=== PATIENT | male | born 1955 | race African-American/Black ===

== ENCOUNTER 2021-05-03 06:45 | Inpatient (IN) | payer OTHER, MEDICARE ==
[2021-05-03] VITALS (44 sets, daily range): BP systolic 77–250; BP diastolic 34–132
[~2021-05-03] VITALS: Ht 190.5 cm; Wt 109.3 kg
[2021-05-03] MEDS ORDERED: ASPIRIN 81MG TABLET PO ONE (07:30)
[2021-05-03] MEDS ORDERED: NITROGLYCERIN 0.4MG TABLET SL SL PRN (07:30)
[2021-05-03] MEDS ORDERED: NITROGLYCERIN 50MCG/ML 10ML VIAL (CATH LAB) IV ONE (07:50)
[2021-05-03] MEDS ORDERED: HEPARIN SODIUM 1,000 UNIT/1ML VIAL IV ONE (07:50)
[2021-05-03] MEDS ORDERED: NICARDIPINE 100MCG/ML 10ML VIAL (CATH LAB) IV ONE (07:50)
[2021-05-03 08:05] LABS: CHLORIDE 107 mEq/L (98-107)
[2021-05-03 08:08] LABS: BASOPHILS % 0.7 % (0.0-2.0); EOSINOPHILS % 1.9 % (0.0-5.0); HEMATOCRIT. 40.6 % (42.0-52.0); HEMOGLOBIN. 13.9 g/dL (14.0-18.0); LYMPHOCYTES % 22.3 % (20.0-50.0); MEAN CORPUSCULAR HEMOGLOBIN 30.4 pg (28.0-32.0); MEAN CORPUSCULAR VOLUME 88.5 fL (80.0-94.0); MEAN PLATELET VOLUME 8.9 fl (7.4-10.4); MONOCYTES % 6.9 % (2.0-8.0); NEUTROPHILS % 68.2 % (40.0-76.0); PLATELET 220 x1000/uL (130-400); RED BLOOD CELL COUNT 4.58 mill/uL (4.7-6.1); RED CELL DISTRIBUTION WIDTH 13.7 % (11.6-14.6)
[2021-05-03] MEDS ORDERED: ENOXAPARIN 150MG/ML SYR SUBCUT ONE (09:15)
[2021-05-03] MEDS ORDERED: VECURONIUM BROMIDE 10 MG/VIAL IV ONE (09:23)
[2021-05-03] MEDS ORDERED: SUCCINYLCHOLINE CHLORIDE 200MG/10ML IV ONE (09:23)
[2021-05-03] MEDS ORDERED: ETOMIDATE 2MG/ML 10ML VIAL IV ONE (09:23)
[2021-05-03] MEDS ORDERED: LOPHC2 GT (09:55)
[2021-05-03] MEDS ORDERED: AMLO2.5T2 MT (09:55)
[2021-05-03] MEDS ORDERED: LOPHC2 MT (09:55)
[2021-05-03] MEDS ORDERED: ATOR10TA69 MT (09:55)
[2021-05-03] MEDS ORDERED: ASPIRIN 81MG TABLET PO NR (10:54)
[2021-05-03] MEDS ORDERED: LIDOCAINE HCL 1% 20ML VIAL (Pyxis) INJ ONE (12:13)
[2021-05-03] MEDS ORDERED: IODIXANOL 320MG/ML 100 ML BOTTLE IV ONE ×3 (12:20→13:51)
[2021-05-03] MEDS ORDERED: IOHEXOL-300 100 ML BOTTLE ONE ×2 (12:20→13:50)
[2021-05-03] MEDS ORDERED: MIDAZOLAM HCL 2 MG/2 ML VIAL ONE ×3 (12:21→13:02)
[2021-05-03] MEDS ORDERED: VERAPAMIL HCL 2.5 MG/1 ML 2ML VIAL IV ONE (12:22)
[2021-05-03] MEDS ORDERED: FENTANYL CITRATE/PF 50MCG/ML 2ML VIAL ONE ×2 (12:22→12:47)
[2021-05-03] MEDS ORDERED: DIPHENHYDRAMINE 50MG/ML VIAL ONE (13:07)
[2021-05-03] MEDS ORDERED: PROPOFOL 10MG/ML 100ML 100 ML IV ONE (13:26)
[2021-05-03] MEDS ORDERED: ROCURONIUM BROMIDE 10MG/ML VIAL 5ML IV ONE ×2 (14:05→14:50)
[2021-05-03] MEDS ORDERED: FENTANYL CITRATE/PF 2,500 MCG in SODIUM CHLORIDE 0.9% 200 ML IV PRN ×2 (15:30→22:15)
[2021-05-03] MEDS ORDERED: ACETAMINOPHEN 325MG TABLET PO PRN (15:30)
[2021-05-03] MEDS ORDERED: HYDRALAZINE 20MG/ML VIAL IV NR (15:30)
[2021-05-03] MEDS ORDERED: HYDRALAZINE 20MG/ML VIAL IV PRN (15:30)
[2021-05-03] MEDS ORDERED: ATROPINE SULFATE 1MG/10ML SYR IV PRN (15:30)
[2021-05-03] MEDS ORDERED: METOPROLOL TARTRATE 5MG/5ML VIAL IV NR (15:30)
[2021-05-03] MEDS: PROPOFOL 10MG/ML 100ML 100 ML IV SCH ×3 (15:34→22:31)
[2021-05-03] MEDS ORDERED: METOPROLOL TARTRATE 5MG/5ML VIAL IV ONE (15:38)
[2021-05-03] MEDS ORDERED: NITROGLYCERIN 50MG PREMIX 250 ML IV PRN (15:45)
[2021-05-03 16:03] LABS: BG BASE EXCESS -6.6 mmol/L (-2.0-2.0); BG CARBOXYHEMOGLOBIN 0.3 % (0.5-1.5); BG DEOXYHEMOGLOBIN 4.2 % (0.0-5.0); BG FRACTION INSPIRED OXYGEN 70; BG HCO3 ACT 19.6 mmol/L (22.0-26.0); BG METHEMOGLOBIN 0.3 % (0.0-1.5); BG OXYGEN SATURATION 95.8 % (92.0-98.5); BG OXYHEMOGLOBIN 95.2 % (94.0-97.0); BG PCO2 41.4 mmHg (35.0-45.0); BG PH 7.293 (7.350-7.450); BG PO2 87.4 mmHg (75.0-100.0); BG SAMPLE SITE ALINE; BG TOTAL HEMOGLOBIN 15.3 g/dL (12.0-18.0); BG VENT MODE VENT - AC
[2021-05-03] MEDS ORDERED: METOPROLOL TARTRATE 25MG TABLET PO NR (16:30)
[2021-05-03] MEDS: PANTOPRAZOLE SODIUM 40 MG/VIAL IV SCH (16:57)
[2021-05-03 19:29] LABS: INR 1.1; PROTHROMBIN TIME 11.9 sec (9.6-11.0)
[2021-05-03] MEDS ORDERED: HEPARIN 25,000 UNITS PREMIX 250 ML IV SCH (19:30)
[2021-05-03] MEDS ORDERED: HEPARIN BOLUS PRN aPTT <30 IV (19:45)
[2021-05-03] MEDS ORDERED: HEPARIN BOLUS PRN aPTT 30-44 IV (19:45)
[2021-05-03] MEDS: IPRATROPIUM/ALBUTEROL 0.5-3(2.5)MG/3ML NEB HHN SCH (20:12)
[2021-05-03] MEDS: HEPARIN 25,000 UNITS PREMIX 250 ML IV SCH (20:24)
[2021-05-03] MEDS: ALLOPURINOL 300 MG TABLET PO SCH (20:31)
[2021-05-03] MEDS: CHLORHEXIDINE GLUCONATE 4% EXTERNAL USE TOP SCH (20:32)
[2021-05-03] MEDS: METOPROLOL TARTRATE 50MG TABLET PO SCH (20:34)
[2021-05-03] MEDS ORDERED: BISACODYL 10MG SUPP PR PRN (21:00)
[2021-05-03] MEDS ORDERED: ASCORBIC ACID 500 MG TABLET PO NR (21:00)
[2021-05-03] MEDS ORDERED: CHLORHEXIDINE GLUCONATE 4% EXTERNAL USE TOP NR (21:00)
[2021-05-03] MEDS ORDERED: DOCUSATE SODIUM 100MG CAPSULE PO NR (21:00)
[2021-05-03] MEDS: HYDRALAZINE HCL 50MG TABLET PO SCH (22:23)
[2021-05-04] VITALS (74 sets, daily range): BP systolic 88–153; BP diastolic 31–82
[2021-05-04] MEDS: IPRATROPIUM/ALBUTEROL 0.5-3(2.5)MG/3ML NEB HHN SCH ×4 (01:45→20:31)
[2021-05-04] MEDS: PROPOFOL 10MG/ML 100ML 100 ML IV PRN ×4 (02:10→12:17)
[2021-05-04 04:47] LABS: BASOPHILS % 0.2 % (0.0-2.0); EOSINOPHILS % 0.4 % (0.0-5.0); HEMATOCRIT. 38.8 % (42.0-52.0); HEMOGLOBIN. 13.1 g/dL (14.0-18.0); LYMPHOCYTES % 13.3 % (20.0-50.0); MEAN CORPUSCULAR HEMOGLOBIN 29.9 pg (28.0-32.0); MEAN CORPUSCULAR VOLUME 88.5 fL (80.0-94.0); MEAN PLATELET VOLUME 8.8 fl (7.4-10.4); MONOCYTES % 7.4 % (2.0-8.0); NEUTROPHILS % 78.7 % (40.0-76.0); PLATELET 212 x1000/uL (130-400); RED BLOOD CELL COUNT 4.39 mill/uL (4.7-6.1); RED CELL DISTRIBUTION WIDTH 13.6 % (11.6-14.6)
[2021-05-04 04:52] LABS: CHLORIDE 105 mEq/L (98-107)
[2021-05-04] MEDS: ALLOPURINOL 300 MG TABLET PO SCH (05:27)
[2021-05-04] MEDS: HYDRALAZINE HCL 50MG TABLET PO SCH ×3 (05:27→21:14)
[2021-05-04] MEDS: HEPARIN 25,000 UNITS PREMIX 250 ML IV SCH (06:00)
[2021-05-04] MEDS ORDERED: HEPARIN 25,000 UNITS PREMIX 250 ML IV PRN (06:15)
[2021-05-04] MEDS ORDERED: POTASSIUM CHLORIDE INJ 40 MEQ in DEXT 5% WATER 250 ML IV SCH (07:00)
[2021-05-04] MEDS ORDERED: MAGNESIUM SULFATE 5GM/10ML VIAL IV ONE (07:40)
[2021-05-04] MEDS ORDERED: HEPARIN 1000 UNITS/ML 10ML ONE ×2 (07:40→13:41)
[2021-05-04] MEDS ORDERED: HEPARIN 10,000 UNITS/ML VIAL ONE ×2 (07:40→17:03)
[2021-05-04] MEDS ORDERED: ALBUMIN HUMAN 25GM/100ML (25%) IV ONE (07:40)
[2021-05-04] MEDS: PANTOPRAZOLE SODIUM 40 MG/VIAL IV SCH (08:58)
[2021-05-04] MEDS: ASPIRIN 81MG TABLET PO SCH (09:00)
[2021-05-04] MEDS: METOPROLOL TARTRATE 50MG TABLET PO SCH ×2 (09:00→20:44)
[2021-05-04] MEDS ORDERED: KCL 10MEQ/50ML PREMIX 200 ML IV PRN (10:00)
[2021-05-04] MEDS ORDERED: KCL 10MEQ/50ML PREMIX 150 ML IV PRN (10:00)
[2021-05-04] MEDS ORDERED: THROMBIN (BOVINE) 5000 UNITS/VIAL TOP ONE (10:02)
[2021-05-04] MEDS ORDERED: SKIN ADHESIVE 0.7 GM EA TOP ONE (10:02)
[2021-05-04] MEDS: CHLORHEXIDINE GLUCONATE 4% EXTERNAL USE TOP SCH (10:38)
[2021-05-04] MEDS ORDERED: POLYMYXIN B SULFATE 500000 UNITS/VIAL ONE (11:14)
[2021-05-04] MEDS ORDERED: DOPAMINE 400MG/250ML PREMIX 250 ML IV ONE (11:18)
[2021-05-04 11:40] LABS: BG CARBOXYHEMOGLOBIN 0.3 % (0.5-1.5); BG DEOXYHEMOGLOBIN 0.8 % (0.0-5.0); BG FRACTION INSPIRED OXYGEN 70; BG HCO3 ACT 22.5 mmol/L (22.0-26.0); BG METHEMOGLOBIN 0.1 % (0.0-1.5); BG OXYGEN SATURATION 99.2 % (92.0-98.5); BG OXYHEMOGLOBIN 98.8 % (94.0-97.0); BG PCO2 37.7 mmHg (35.0-45.0); BG PH 7.393 (7.350-7.450); BG PO2 265.7 mmHg (75.0-100.0); BG SAMPLE SITE ALINE; BG TOTAL HEMOGLOBIN 13.6 g/dL (12.0-18.0); BG TOTAL RESPIRATORY RATE 18 b/min; BG VENT MODE VENT - AC
[2021-05-04] MEDS ORDERED: CEFAZOLIN 2,000 MG in DEXT 5% WATER 100 ML IV SCH (12:00)
[2021-05-04] MEDS ORDERED: INSULIN REGULAR (DRIP) 100 UNITS in SODIUM CHLORIDE 0.9% 99 ML IV SCH (12:00)
[2021-05-04] MEDS ORDERED: EPINEPHRINE 5 MG in DEXT 5% WATER 245 ML IV PRN (12:00)
[2021-05-04] MEDS ORDERED: PAPAVERINE HCL 180MG in SODIUM CHLORIDE 0.9% 24ML IV SCH (12:00)
[2021-05-04] MEDS ORDERED: AMINOCAPROIC ACID 5,000 MG in SODIUM CHLORIDE 0.9% 230 ML IV SCH (12:00)
[2021-05-04] MEDS ORDERED: NOREPINEPHRINE 8 MG in DEXT 5% WATER 242 ML IV PRN (12:00)
[2021-05-04] MEDS ORDERED: DEL NIDO ELECTROLYTE-S(PH 7.4) 1,000 ML IV SCH ×2 (12:00)
[2021-05-04] MEDS ORDERED: FUROSEMIDE 40MG/4ML VIAL IVP NR (12:30)
[2021-05-04] MEDS ORDERED: ROCURONIUM BROMIDE 10MG/ML VIAL 5ML IV ONE (13:45)
[2021-05-04] MEDS ORDERED: FENTANYL CITRATE/PF 50MCG/ML 5ML VIAL ONE (13:49)
[2021-05-04] MEDS ORDERED: PROPOFOL 10MG/ML 100ML 100 ML IV ONE ×2 (14:44→18:17)
[2021-05-04] MEDS ORDERED: CEFAZOLIN SODIUM 1000MG/VIAL ONE ×2 (15:12→16:17)
[2021-05-04] MEDS ORDERED: HYDRALAZINE 20MG/ML VIAL ONE (15:19)
[2021-05-04] MEDS ORDERED: PROPOFOL 200MG/20ML VIAL IV ONE (16:16)
[2021-05-04] MEDS ORDERED: ONDANSETRON HCL 4MG/2ML INJ ONE (16:17)
[2021-05-04] MEDS ORDERED: METOCLOPRAMIDE HCL 10MG/2ML VIAL ONE (16:17)
[2021-05-04] MEDS ORDERED: PROPOFOL 10MG/ML 100ML 100 ML IV PRN (16:30)
[2021-05-04] MEDS ORDERED: CALCIUM CHLORIDE 1GM/10ML SYR IV ONE (16:31)
[2021-05-04] MEDS ORDERED: MIDAZOLAM HCL 2 MG/2 ML VIAL ONE (16:54)
[2021-05-04] MEDS ORDERED: PROTAMINE SULFATE 10MG/ML VIAL 25ML IV ONE (17:15)
[2021-05-04] MEDS ORDERED: ALBUMIN HUMAN 12.5G/250ML (5%) IV ONE ×2 (17:19→17:50)
[2021-05-04] MEDS ORDERED: NEOSTIGMINE METHYLSULFATE 1MG/ML 10 ML VIAL ONE (17:33)
[2021-05-04] MEDS ORDERED: SODIUM BICARBONATE 8.4% 1 MEQ/ML 50ML SYR IV ONE ×2 (17:39→18:54)
[2021-05-04] MEDS ORDERED: SODIUM CHLORIDE 0.9% 10ML VIAL ONE (17:51)
[2021-05-04] MEDS ORDERED: PHENYLEPHRINE HCL 10 MG/ML 1ML (IV VIAL) IV ONE (17:52)
[2021-05-04] MEDS ORDERED: KCL 20MEQ/100ML PREMIX 100 ML IV NR (18:00)
[2021-05-04] MEDS ORDERED: ALBUMIN HUMAN 25GM/100ML (25%) IV PRN (18:15)
[2021-05-04] MEDS ORDERED: MAGNESIUM SULFATE 3 GM in DEXT 5% WATER 100 ML IV PRN (18:15)
[2021-05-04] MEDS ORDERED: ONDANSETRON HCL 4MG/2ML INJ IV PRN (18:15)
[2021-05-04] MEDS ORDERED: MAGNESIUM 2 G PREMIX 50 ML IV PRN (18:15)
[2021-05-04] MEDS ORDERED: ALBUMIN HUMAN 12.5G/250ML (5%) IV PRN (18:15)
[2021-05-04] MEDS ORDERED: MAGNESIUM 1 G PREMIX 100 ML IV PRN (18:15)
[2021-05-04] MEDS ORDERED: EPINEPHRINE 5 MG in DEXT 5% WATER 245 ML IV SCH (18:15)
[2021-05-04] MEDS ORDERED: SODIUM CHLORIDE 0.9% 500 ML IV PRN (18:15)
[2021-05-04] MEDS ORDERED: KETOROLAC 30MG/ML VIAL IV PRN (18:15)
[2021-05-04] MEDS ORDERED: DEXMEDETOMIDINE 400 MCG/100 ML 100 ML IV ONE (18:17)
[2021-05-04 18:40] LABS: BG BASE EXCESS -6.1 mmol/L (-2.0-2.0); BG CARBOXYHEMOGLOBIN 0.3 % (0.5-1.5); BG DEOXYHEMOGLOBIN 4.6 % (0.0-5.0); BG FRACTION INSPIRED OXYGEN 100; BG HCO3 ACT 18.2 mmol/L (22.0-26.0); BG METHEMOGLOBIN 0.4 % (0.0-1.5); BG OXYGEN SATURATION 95.4 % (92.0-98.5); BG OXYHEMOGLOBIN 94.7 % (94.0-97.0); BG PCO2 31.8 mmHg (35.0-45.0); BG PH 7.375 (7.350-7.450); BG PO2 79.8 mmHg (75.0-100.0); BG SAMPLE SITE ALINE; BG VENT MODE MASK - NRB
[2021-05-04 18:56] LABS: CHLORIDE 108 mEq/L (98-107); HEMATOCRIT. 29.8 % (42.0-52.0); HEMOGLOBIN. 10.3 g/dL (14.0-18.0); MEAN CORPUSCULAR HEMOGLOBIN 30.7 pg (28.0-32.0); MEAN CORPUSCULAR VOLUME 88.5 fL (80.0-94.0); MEAN PLATELET VOLUME 8.9 fl (7.4-10.4); PLATELET 168 x1000/uL (130-400); RED BLOOD CELL COUNT 3.36 mill/uL (4.7-6.1); RED CELL DISTRIBUTION WIDTH 13.4 % (11.6-14.6)
[2021-05-04] MEDS ORDERED: SODIUM BICARBONATE 8.4% 1 MEQ/ML 50ML SYR IV NR (19:00)
[2021-05-04] MEDS: DOPAMINE 400MG/250ML PREMIX 250 ML IV SCH (19:10)
[2021-05-04] MEDS ORDERED: DEXT 5%/0.45% NACL 1000ML 1,000 ML IV SCH (19:30)
[2021-05-04] MEDS ORDERED: FUROSEMIDE 100MG/10ML VIAL IVP NR (20:00)
[2021-05-04 20:01] LABS: PLATELET ESTIMATE NORMAL
[2021-05-04] MEDS ORDERED: POTASSIUM CHLORIDE INJ 40 MEQ in DEXT 5% WATER 250 ML IV ONE (20:30)
[2021-05-04] MEDS: CLOPIDOGREL 75MG TABLET PO SCH (22:25)
[2021-05-04] MEDS: MAGNESIUM HYDROXIDE 400MG/5ML 30ML UDC PO SCH (22:28)
[2021-05-04] MEDS: CEFAZOLIN 1000MG PREMIX 50 ML IV SCH (22:36)
[2021-05-04] MEDS: OXYCODONE HCL/ACETAMINOPHEN 5/325MG TABLET PO PRN ×2 (22:44→23:19)
[2021-05-04] MEDS ORDERED: CEFAZOLIN 1000MG PREMIX 50 ML IV SCH (23:30)
[2021-05-05] VITALS (97 sets, daily range): BP systolic 92–178; BP diastolic 36–92
[2021-05-05 00:15] LABS: HEMATOCRIT. 27.4 % (42.0-52.0); HEMOGLOBIN. 9.5 g/dL (14.0-18.0); MEAN CORPUSCULAR HEMOGLOBIN 30.3 pg (28.0-32.0); MEAN CORPUSCULAR VOLUME 87.7 fL (80.0-94.0); MEAN PLATELET VOLUME 8.5 fl (7.4-10.4); PLATELET 151 x1000/uL (130-400); RED BLOOD CELL COUNT 3.13 mill/uL (4.7-6.1); RED CELL DISTRIBUTION WIDTH 13.7 % (11.6-14.6)
[2021-05-05] MEDS: OXYCODONE HCL/ACETAMINOPHEN 5/325MG TABLET PO PRN ×2 (02:05→10:34)
[2021-05-05] MEDS: IPRATROPIUM/ALBUTEROL 0.5-3(2.5)MG/3ML NEB HHN SCH ×5 (02:18→20:35)
[2021-05-05] MEDS ORDERED: FUROSEMIDE 20MG/2ML VIAL IV SCH (02:45)
[2021-05-05] MEDS: KCL 10MEQ/50ML PREMIX 100 ML IV PRN ×2 (03:02→03:39)
[2021-05-05] MEDS: MAGNESIUM HYDROXIDE 400MG/5ML 30ML UDC PO SCH ×5 (03:04→17:40)
[2021-05-05] MEDS: ALBUMIN HUMAN 25GM/100ML (25%) IV SCH ×5 (03:19→15:32)
[2021-05-05] MEDS: DOPAMINE 400MG/250ML PREMIX 250 ML IV SCH (03:40)
[2021-05-05] MEDS: FUROSEMIDE IV PRN ×2 (03:51→04:10)
[2021-05-05] MEDS: WATER IV PRN ×2 (03:51→04:10)
[2021-05-05] MEDS: DEXT 5% IV PRN ×2 (03:51→04:10)
[2021-05-05 06:02] LABS: HEMOGLOBIN. 8.9 g/dL (14.0-18.0); MEAN CORPUSCULAR HEMOGLOBIN 29.9 pg (28.0-32.0); MEAN PLATELET VOLUME 9.1 fl (7.4-10.4); PLATELET 149 x1000/uL (130-400); RED BLOOD CELL COUNT 2.99 mill/uL (4.7-6.1); RED CELL DISTRIBUTION WIDTH 13.7 % (11.6-14.6)
[2021-05-05] MEDS ORDERED: INSULIN REGULAR (DRIP) 100 UNITS in SODIUM CHLORIDE 0.9% 99 ML IV ONE ×2 (07:00→07:05)
[2021-05-05] MEDS ORDERED: DEXTROSE 50% WATER 50ML SYRINGE IV PRN ×2 (07:15)
[2021-05-05] MEDS ORDERED: INSULIN REGULAR (DRIP) 100 UNITS in SODIUM CHLORIDE 0.9% 100 ML IV SCH (07:30)
[2021-05-05] MEDS: CEFAZOLIN 1000MG PREMIX 50 ML IV SCH ×2 (08:42→15:32)
[2021-05-05] MEDS: CLOPIDOGREL 75MG TABLET PO SCH (08:51)
[2021-05-05] MEDS: BLOOD SUGAR DIAGNOSTIC STRIP TEST SCH ×7 (08:51→14:41)
[2021-05-05] MEDS: PANTOPRAZOLE SODIUM 40 MG/VIAL IV SCH (08:52)
[2021-05-05] MEDS: ASPIRIN 81MG TABLET PO SCH (08:52)
[2021-05-05] MEDS: DOCUSATE SODIUM 100MG CAPSULE PO SCH ×2 (08:52→16:45)
[2021-05-05] MEDS ORDERED: FAMOTIDINE 20MG/2ML VIAL IV SCH (09:00)
[2021-05-05] MEDS: BACITRACIN 15GM TUBE TOP SCH ×2 (09:00→16:45)
[2021-05-05 10:28] LABS: PLATELET ESTIMATE NORMAL
[2021-05-05] MEDS ORDERED: MAGNESIUM SULFATE 3 GM in DEXT 5% WATER 96 ML IV NR (12:30)
[2021-05-05 13:43] LABS: PLATELET ESTIMATE NORMAL
[2021-05-05] MEDS: ACETYLCYSTEINE 100MG/ML 10% VIAL 4ML INH SCH ×2 (14:34→20:35)
[2021-05-05] MEDS ORDERED: FUROSEMIDE 40MG/4ML VIAL IVP NR (18:15)
[2021-05-05] MEDS ORDERED: ALBUMIN HUMAN 25GM/100ML (25%) IV NR (18:15)
[2021-05-05] MEDS ORDERED: MAGNESIUM 2 G PREMIX 50 ML IV SCH (20:00)
[2021-05-05] MEDS ORDERED: MAGNESIUM 2 G PREMIX 50 ML IV PRN (20:00)
[2021-05-05] MEDS: FAMOTIDINE 20MG TABLET PO SCH (20:50)
[2021-05-06] VITALS (43 sets, daily range): BP systolic 10–160; BP diastolic 0–82
[2021-05-06] MEDS: OXYCODONE HCL/ACETAMINOPHEN 5/325MG TABLET PO PRN ×2 (00:24→18:44)
[2021-05-06] MEDS: IPRATROPIUM/ALBUTEROL 0.5-3(2.5)MG/3ML NEB HHN SCH ×7 (01:37→20:40)
[2021-05-06 06:37] LABS: BASOPHILS % 0.1 % (0.0-2.0); EOSINOPHILS % 0.1 % (0.0-5.0); HEMATOCRIT. 22.2 % (42.0-52.0); HEMOGLOBIN. 7.8 g/dL (14.0-18.0); LYMPHOCYTES % 11.3 % (20.0-50.0); MEAN CORPUSCULAR VOLUME 88.1 fL (80.0-94.0); MEAN PLATELET VOLUME 9.4 fl (7.4-10.4); MONOCYTES % 8.1 % (2.0-8.0); NEUTROPHILS % 80.4 % (40.0-76.0); PLATELET 108 x1000/uL (130-400); RED BLOOD CELL COUNT 2.52 mill/uL (4.7-6.1); RED CELL DISTRIBUTION WIDTH 13.8 % (11.6-14.6)
[2021-05-06] MEDS: ACETYLCYSTEINE 100MG/ML 10% VIAL 4ML INH SCH ×2 (08:52→19:52)
[2021-05-06] MEDS: ASPIRIN 81MG TABLET PO SCH (08:56)
[2021-05-06] MEDS: FAMOTIDINE 20MG TABLET PO SCH ×2 (08:56→20:13)
[2021-05-06] MEDS: CLOPIDOGREL 75MG TABLET PO SCH (08:56)
[2021-05-06] MEDS: BACITRACIN 15GM TUBE TOP SCH ×2 (08:57→18:44)
[2021-05-06] MEDS: DOCUSATE SODIUM 100MG CAPSULE PO SCH ×2 (08:57→18:44)
[2021-05-06] MEDS ORDERED: MORPHINE SULFATE 2 MG/ML CPJ (NOT FOR IM USE) IV NR (10:45)
[2021-05-06] MEDS ORDERED: FUROSEMIDE 40MG/4ML VIAL IVP NR (11:00)
[2021-05-06] MEDS: KCL 10MEQ/50ML PREMIX 100 ML IV PRN (11:43)
[2021-05-06] MEDS: MINERAL OIL 30ML BOTTLE PO SCH ×2 (13:24→18:44)
[2021-05-06] MEDS: FINASTERIDE 5MG TABLET PO SCH ×2 (14:27→18:44)
[2021-05-07] VITALS (12 sets, daily range): BP systolic 103–173; BP diastolic 56–91
[2021-05-07] MEDS: IPRATROPIUM/ALBUTEROL 0.5-3(2.5)MG/3ML NEB HHN SCH ×6 (00:16→21:02)
[2021-05-07] MEDS: OXYCODONE HCL/ACETAMINOPHEN 5/325MG TABLET PO PRN ×2 (04:25→16:15)
[2021-05-07 07:06] LABS: HEMATOCRIT. 29.4 % (42.0-52.0); HEMOGLOBIN. 10.1 g/dL (14.0-18.0); MEAN CORPUSCULAR VOLUME 87.5 fL (80.0-94.0); MEAN PLATELET VOLUME 9.2 fl (7.4-10.4); PLATELET 142 x1000/uL (130-400); RED BLOOD CELL COUNT 3.36 mill/uL (4.7-6.1); RED CELL DISTRIBUTION WIDTH 14.2 % (11.6-14.6)
[2021-05-07] MEDS: ACETYLCYSTEINE 100MG/ML 10% VIAL 4ML INH SCH ×2 (07:32→18:00)
[2021-05-07] MEDS: BACITRACIN 15GM TUBE TOP SCH ×2 (08:15→16:15)
[2021-05-07] MEDS: ASPIRIN 81MG TABLET PO SCH (08:15)
[2021-05-07] MEDS: FINASTERIDE 5MG TABLET PO SCH ×2 (08:15→16:14)
[2021-05-07] MEDS: FAMOTIDINE 20MG TABLET PO SCH ×2 (08:15→20:43)
[2021-05-07] MEDS: CLOPIDOGREL 75MG TABLET PO SCH (08:15)
[2021-05-07] MEDS: DOCUSATE SODIUM 100MG CAPSULE PO SCH ×2 (08:15→16:13)
[2021-05-07] MEDS: MINERAL OIL 30ML BOTTLE PO SCH ×2 (08:15→16:13)
[2021-05-07] MEDS ORDERED: BUMETANIDE 1MG/4ML VIAL IV NR (10:30)
[2021-05-07 11:41] LABS: PLATELET ESTIMATE NORMAL
[2021-05-07] MEDS ORDERED: FUROSEMIDE 20MG/2ML VIAL IVP NR (13:00)
[2021-05-07] MEDS: METOPROLOL TARTRATE 25MG TABLET PO SCH (20:43)
[2021-05-07] MEDS ORDERED: POTASSIUM CHLORIDE 10MEQ TABLET SR PO SCH (22:00)
[2021-05-08] VITALS (10 sets, daily range): BP systolic 106–145; BP diastolic 49–93
[2021-05-08] MEDS: IPRATROPIUM/ALBUTEROL 0.5-3(2.5)MG/3ML NEB HHN SCH ×4 (01:25→14:55)
[2021-05-08] MEDS: OXYCODONE HCL/ACETAMINOPHEN 5/325MG TABLET PO PRN (04:19)
[2021-05-08 07:20] LABS: HEMATOCRIT 28.6 % (42.0-52.0); HEMOGLOBIN 9.8 g/dL (14.0-18.0); MEAN CORPUSCULAR HEMOGLOBIN 30.3 pg (28.0-32.0); MEAN CORPUSCULAR VOLUME 88.3 fL (80.0-94.0); PLATELET 179 x1000/uL (130-400); RED BLOOD CELL COUNT 3.24 mill/uL (4.7-6.1); RED CELL DISTRIBUTION WIDTH 14.1 % (11.6-14.6)
[2021-05-08] MEDS: DOCUSATE SODIUM 100MG CAPSULE PO SCH (08:30)
[2021-05-08] MEDS: CLOPIDOGREL 75MG TABLET PO SCH (08:30)
[2021-05-08] MEDS: FINASTERIDE 5MG TABLET PO SCH (08:30)
[2021-05-08] MEDS: METOPROLOL TARTRATE 25MG TABLET PO SCH (08:30)
[2021-05-08] MEDS: ASPIRIN 81MG TABLET PO SCH (08:30)
[2021-05-08] MEDS: MINERAL OIL 30ML BOTTLE PO SCH (08:31)
[2021-05-08] MEDS: BACITRACIN 15GM TUBE TOP SCH (08:31)
[2021-05-08] MEDS: FAMOTIDINE 20MG TABLET PO SCH (08:31)
[2021-05-08] MEDS: ACETYLCYSTEINE 100MG/ML 10% VIAL 4ML INH SCH (08:48)
[2021-05-08] MEDS ORDERED: FUROSEMIDE 40MG/4ML VIAL IVP SCH (09:00)
[2021-05-08] MEDS ORDERED: POTASSIUM CHLORIDE 20MEQ TABLET SR PO NR (11:00)
[2021-05-09] MEDS ORDERED: FUROSEMIDE 40MG TABLET PO SCH (09:00)
== END 2021-05-08 17:16 | disposition home health service (06) | DRG 231 ==
LOC: ER 06:45 → CVICU 10:16 → EDBEDREQSVC 10:19 → EDBEDREQTM 10:19 → EDBEDREQ 10:19 → CVICU 05-04 01:58 → 3WST 05-05 23:58
PROVIDERS: ADMIT Hospitalist; ATTEND Hospitalist
PROC: 02703Z6 Dilation of Coronary Artery, One Artery, Bifurcation, Percutaneous Approach (ICD-10-PCS; 2021-05-03)
PROC: 4A023N7 Measurement of Cardiac Sampling and Pressure, Left Heart, Percutaneous Approach (ICD-10-PCS; 2021-05-03)
PROC: B2111ZZ Fluoroscopy of Multiple Coronary Arteries using Low Osmolar Contrast (ICD-10-PCS; 2021-05-03)
PROC: B41F1ZZ Fluoroscopy of Right Lower Extremity Arteries using Low Osmolar Contrast (ICD-10-PCS; 2021-05-03)
PROC: 5A1945Z Respiratory Ventilation, 24-96 Consecutive Hours (ICD-10-PCS; 2021-05-03)
PROC: 0BH17EZ Insertion of Endotracheal Airway into Trachea, Via Natural or Artificial Opening (ICD-10-PCS; 2021-05-03)
PROC: 02100Z9 Bypass Coronary Artery, One Artery from Left Internal Mammary, Open Approach (ICD-10-PCS; principal; 2021-05-04)
PROC: 021209W Bypass Coronary Artery, Three Arteries from Aorta with Autologous Venous Tissue, Open Approach (ICD-10-PCS; 2021-05-04)
PROC: 06BQ4ZZ Excision of Left Saphenous Vein, Percutaneous Endoscopic Approach (ICD-10-PCS; 2021-05-04)
PROC: 30233N1 Transfusion of Nonautologous Red Blood Cells into Peripheral Vein, Percutaneous Approach (ICD-10-PCS; 2021-05-06)
DX: I21.09 ST elevation (STEMI) myocardial infarction involving other coronary artery of anterior wall (principal); I50.41 Acute combined systolic (congestive) and diastolic (congestive) heart failure; J96.01 Acute respiratory failure with hypoxia; N17.9 Acute kidney failure, unspecified; I25.10 Atherosclerotic heart disease of native coronary artery without angina pectoris; I16.0 Hypertensive urgency; I11.0 Hypertensive heart disease with heart failure; D64.9 Anemia, unspecified; E87.6 Hypokalemia; F17.200 Nicotine dependence, unspecified, uncomplicated; F12.90 Cannabis use, unspecified, uncomplicated; G89.29 Other chronic pain; I25.2 Old myocardial infarction; Z82.49 Family history of ischemic heart disease and other diseases of the circulatory system; K21.9 Gastro-esophageal reflux disease without esophagitis; R74.01 Elevation of levels of liver transaminase levels; Z20.822 Contact with and (suspected) exposure to COVID-19
CPT/HCPCS: 36415; 36600; 71045; 80048; 80053; 80061; 82375; 82805; 82962; 83036; 83735; 83880; 84132; 84478; 84484; 85025; 85027; 85347; 86850; 86900; 86920; 87070; 87426; 92941; 93005; 93306; 93458; 93880; 94002; 94003; 94618; 94640; 97110; 97116; 97163; 97166; 97530; 97535; 99291; C1725; C1726; C1769; C1887; C1893; C9113; J0330; J0360; J0690; J1200; J1265; J1644; J1650; J1815; J1940; J2250; J2270; J2370; J2405; J2440; J2704; J2710; J2720; J2765; J3010; J3475; J3480; J3490; J7040; J7050; J7060; J7608; L1830; P9016; P9021; P9041; P9047; Q9957; Q9967; A4315